=== PATIENT | female | born 1945 | race Caucasian/White ===

== ENCOUNTER 2017-03-17 06:55 | Emergency (ER) | payer MEDICARE, BC ==
[~2017-03-17] VITALS: Ht 147.3 cm; Wt 49.0 kg
[2017-03-17 07:01] VITALS: BP 142/100; PULSE 96; RESP 16; TEMP 98.5; O2SAT 99
[2017-03-17] MEDS ORDERED: ESTR.3 PO (07:14)
--- NOTE | 2017-03-17 07:29 | PD ---
HPI Chief Complaint: GI Complaint Time Seen by Provider: 07:07 Travel History International Travel<30 days: No Contact w/Intl Traveler<30days: No Traveled to known affect area: No History of Present Illness HPI patient 71-year-old female presents emergency department for evaluation of nausea without vomiting as well as diarrhea and abdominal cramps primarily in the right lower quadrant since early this morning. Patient states she's been having this on and off for a few weeks, has been [place]. She is concerned because she is traveling during the holiday season wanted to make sure it was nothing severe. Denies any fevers denies any blood in the stool nor melena. States symptoms are mild, right lower quadrant, cramping, context as above, associated signs symptoms as above. PFSH Past Surgical History Hysterectomy: Yes Social History Alcohol Use: Yes (WINE DAILY) Tobacco Use: No Substance Use: No Allergies-Medications (Allergen,Severity, Reaction): Coded Allergies: Sulfa (Sulfonamide Antibiotics) (Verified Allergy, Unknown, 03/18/17) bacitracin (Verified Allergy, Unknown, 03/18/17) lisinopril (Verified Allergy, Unknown, 03/18/17) neomycin (Verified Allergy, Unknown, 03/18/17) nickel (Verified Allergy, Unknown, 03/18/17) polymyxin B (Verified Allergy, Unknown, 03/18/17) Reported Meds & Prescriptions Reported Meds & Active Scripts Active Zofran (Ondansetron HCl) 4 Mg Tab 4 Mg PO Q6HR PRN Flagyl (Metronidazole) 500 Mg Tab 500 Mg PO BID 7 Days Cipro (Ciprofloxacin HCl) 500 Mg Tab 500 Mg PO BID 7 Days Reported Premarin (Estrogens Conjugated) 0.3 Mg Tab 0.3 Mg PO EVERY OTHER DAY Review of Systems Except as stated in HPI: all other systems reviewed are Neg Physical Exam Narrative GENERAL: Well-developed well-nourished, no obvious distress. Appears well SKIN: Focused skin assessment warm/dry. HEAD: Atraumatic. Normocephalic. EYES: Pupils equal and round. No scleral icterus. No injection or drainage. ENT: No nasal bleeding or discharge. Mucous membranes pink and moist. NECK: Trachea midline. No JVD. CARDIOVASCULAR: Regular rate and rhythm. No murmur appreciated. RESPIRATORY: No accessory muscle use. Clear to auscultation. Breath sounds equal bilaterally. GASTROINTESTINAL: Abdomen soft, non-tender, nondistended. Hepatic and splenic margins not palpable. No rebound no percussive tenderness. No CVA tenderness. MUSCULOSKELETAL: No obvious deformities. No clubbing. No cyanosis. No edema. NEUROLOGICAL: Awake and alert. No obvious cranial nerve deficits. Motor grossly within normal limits. Normal speech. PSYCHIATRIC: Appropriate mood and affect; insight and judgment normal. Data Data Last Documented VS Orders Orders Complete Blood Count With Diff (03/17/17 07:25) Comprehensive Metabolic Panel (03/17/17 07:25) Lipase (03/17/17 07:25) Urinalysis - C+S If Indicated (03/17/17 07:25) Ct Abd/Pel W Iv Contrast(Rout) (03/17/17 07:25) Iv Access Insert/Monitor (03/17/17 07:25) Ecg Monitoring (03/17/17 07:25) Oximetry (03/17/17 07:25) Ondansetron Inj (Zofran Inj) (03/17/17 07:30) Sodium Chloride 0.9% Flush (Ns Flush) (03/17/17 07:30) Sodium Chlorid 0.9% 500 Ml Inj (Ns 500 M (03/17/17 07:30) Iohexol 350 Inj (Omnipaque 350 Inj) (03/17/17 08:48) Ed Discharge Order (03/17/17 11:22) Radiology Film Requests (03/17/17 ) Labs Laboratory Tests Test 03/17/17 07:23 03/17/17 07:30 03/17/17 07:35 Blood Urea Nitrogen 18 MG/DL Creatinine 0.72 MG/DL Random Glucose 135 MG/DL Total Protein 7.3 GM/DL Albumin 3.9 GM/DL Calcium Level 8.7 MG/DL Alkaline Phosphatase 87 U/L Aspartate Amino Transf (AST/SGOT) 26 U/L Alanine Aminotransferase (ALT/SGPT) 30 U/L Total Bilirubin 0.6 MG/DL Sodium Level 139 MEQ/L Potassium Level 4.0 MEQ/L Chloride Level 107 MEQ/L Carbon Dioxide Level 26.4 MEQ/L Anion Gap 6 MEQ/L Estimat Glomerular Filtration Rate 80 ML/MIN Lipase 120 U/L Urine Color YELLOW Urine Turbidity CLEAR Urine pH 5.0 Urine Specific [place] 1.017 Urine Protein NEG mg/dL Urine Glucose (UA) NEG mg/dL Urine Ketones NEG mg/dL Urine Occult Blood NEG Urine Nitrite NEG Urine Bilirubin NEG Urine Urobilinogen LESS THAN 2.0 MG/DL Urine Leukocyte Esterase NEG Urine WBC LESS THAN 1 /hpf Urine Squamous Epithelial Cells 2 /hpf Urine Hyaline Casts 1 /lpf Microscopic Urinalysis Comment CULT NOT INDICATED White Blood Count 9.0 TH/MM3 Red Blood Count 4.42 MIL/MM3 Hemoglobin 14.1 GM/DL Hematocrit 41.2 % Mean Corpuscular Volume 93.3 FL Mean Corpuscular Hemoglobin 32.0 PG Mean Corpuscular Hemoglobin Concent 34.3 % Red Cell Distribution Width 13.0 % Platelet Count 231 TH/MM3 Mean Platelet Volume 8.2 FL Neutrophils (%) (Auto) 92.3 % Lymphocytes (%) (Auto) 3.3 % Monocytes (%) (Auto) 3.6 % Eosinophils (%) (Auto) 0.5 % Basophils (%) (Auto) 0.3 % Neutrophils # (Auto) 8.3 TH/MM3 Lymphocytes # (Auto) 0.3 TH/MM3 Monocytes # (Auto) 0.3 TH/MM3 Eosinophils # (Auto) 0.0 TH/MM3 Basophils # (Auto) 0.0 TH/MM3 CBC Comment DIFF FINAL Differential Comment MDM Medical Decision Making Medical Screen Exam Complete: Yes Emergency Medical Condition: Yes Differential Diagnosis colitis, ileitis, pancreatitis, gastritis, gastroenteritis. Narrative Course patient roomed in the emergency department, she appears well and in no obvious distress. Given her age and the location appendicitis needs exclusion and we' ll perform a CAT scan of her abdomen. Her labs are otherwise reassuring. She was offered pain medicine declined, Zofran seemed to control her symptoms. CAT scan does show several nonspecific findings: Last 24 hours Impressions Abdomen/Pelvis CT 03/17/17 0725 Signed Impressions: Service Date/Time: Friday, March 17, 2017 08:43 - CONCLUSION: 1. Nonspecific bowel gas pattern which may represent mild ileus and/or gastroenteritis. An early or partial small bowel obstruction is felt to be less likely. 2. Subtle areas of increased density within the gallbladder which could represent stones and/or sludge. There is no inflammatory change or biliary obstruction. 3. Small low-attenuation lesion in the central right lobe of the liver which is indeterminant but likely represents a small cyst or cavernous hemangioma. 4. Mild hepatic steatosis. Gregg Leon MD Discussed the findings with her and their entirety, she certainly is not obstipated at this time and has been able tolerate by mouth liquids. She does have positive bowel sounds. I think that clinically the patient is very low risk for ileus, her symptoms much more suggestive of gastroenteritis or an inflammatory bowel disease. She would like to go home currently and I think this is a reasonable thing for her but given the CT findings I have encouraged early follow-up with a primary care physician and discussed at length returned ED criteria. She was provided the disc with the CT findings should she need to follow up at an outside facility. At this time she is stable for discharge. Diagnosis Primary Impression: Colitis Med/Other Pt SpecificInfo: Prescription(s) given Scripts Ondansetron (Zofran) 4 Mg Tab 4 MG PO Q6HR Y for NAUSEA OR VOMITING, #20 TAB 0 Refills Prov: Nick Rod MD 03/17/17 Metronidazole (Flagyl) 500 Mg Tab 500 MG PO BID for Infection for 7 Days, #14 TAB 0 Refills Prov: Nick Rod MD 03/17/17 Ciprofloxacin (Cipro) 500 Mg Tab 500 MG PO BID for Infection for 7 Days, #14 TAB 0 Refills Prov: Nick Rod MD 03/17/17 Disposition: 01 DISCHARGE HOME Condition: Stable Nick Rod MD Mar 17, 2017 07:29
[2017-03-17] MEDS ORDERED: SODIUM CHLORID 0.9% 500 ML INJ 500 ML IV ONE (07:30)
[2017-03-17] MEDS ORDERED: SODIUM CHLORIDE 0.9% FLUSH 10 ML FLUSH IV FLUSH PRN (07:30)
[2017-03-17] MEDS ORDERED: ONDANSETRON HCL 4 MG/2 ML VIAL IVP ONE (07:30)
[2017-03-17 08:05] LABS: AUTOMATED NEUTROPHIL # 8.3 TH/MM3 (1.8-7.7); BASOPHIL % 0.3 % (0.0-2.0); EOSINOPHIL % 0.5 % (0.0-4.0); HEMATOCRIT 41.2 % (35.0-46.0); HEMOGLOBIN 14.1 GM/DL (11.6-15.3); LYMPH % 3.3 % (9.0-44.0); LYMPHOCYTE # 0.3 TH/MM3 (1.0-4.8); MEAN CELL VOLUME 93.3 FL (80.0-100.0); MEAN CORPUSCULAR HGB CONC 34.3 % (32.0-36.0); MEAN PLATELET VOLUME 8.2 FL (7.0-11.0); MONO % 3.6 % (0.0-8.0); MONOCYTE # 0.3 TH/MM3 (0-0.9); NEUT % 92.3 % (16.0-70.0); PLATELET COUNT 231 TH/MM3 (150-450); RED BLOOD COUNT 4.42 MIL/MM3 (4.00-5.30)
[2017-03-17 08:14] LABS: BILIRUBIN, URINE NEG (NEG); BLOOD, URINE NEG (NEG); GLUCOSE,URINE NEG (NEG); HYALINE CAST, URINE 1 /lpf (RARE); KETONE, URINE NEG (NEG); NITRITE,URINE NEG (NEG); SQUAMOUS EPITHELIAL CELL URINE 2 /hpf (0-5); URINE COLOR YELLOW (YELLW/STRAW); URINE LEUKOCYTE ESTERASE NEG (NEG)
[2017-03-17 08:14] LABS: ALBUMIN 3.9 GM/DL (3.4-5.0); ALT (GPT) 30 U/L (10-53); AST (GOT) 26 U/L (15-37); BICARBONATE 26.4 MEQ/L (21.0-32.0); BLOOD UREA NITROGEN 18 MG/DL (7-18); CALCIUM 8.7 MG/DL (8.5-10.1); CHLORIDE 107 MEQ/L (98-107); CREATININE 0.72 MG/DL (0.50-1.00); GLOMERULAR FILTRATION RATE 80 ML/MIN (>89); GLUCOSE,RANDOM 135 MG/DL (74-106); LIPASE 120 U/L (73-393); SODIUM (NA) 139 MEQ/L (136-145)
[2017-03-17 08:17] LABS: ALKALINE PHOSPHATASE 87 U/L (45-117); TOTAL BILIRUBIN ADULT 0.6 MG/DL (0.2-1.0); TOTAL PROTEIN 7.3 GM/DL (6.4-8.2)
[2017-03-17] MEDS ORDERED: IOHEXOL 350 MG/ML 10 ML VIAL (for RAD DIAG) IVCONTRAST ONE (08:48)
--- NOTE | 2017-03-17 09:11 | RADRPT ---
EXAM DATE/TIME: 03/17/2017 08:43 [facility] COMPARISON: No previous studies available for comparison. INDICATIONS : Right lower quadrant pain for 12 days, nausea, vomiting, and diarrhea today IV CONTRAST: 68 cc Omnipaque 350 (iohexol) IV ORAL CONTRAST: No oral contrast ingested. RADIATION DOSE: 4.74 CTDIvol (mGy) MEDICAL HISTORY : None SURGICAL HISTORY : Intracranial aneurysm repair. ENCOUNTER: Initial ACUITY: 2 weeks PAIN SCALE: 5/10 LOCATION: Right lower quadrant TECHNIQUE: Volumetric scanning of the abdomen and pelvis was performed. Using automated exposure control and ad justment of the mA and/or kV according to patient size, radiation dose was kept as low as reasonably achievable to obtain optimal diagnostic quality images. DICOM format image data is available electro nically for review and comparison. FINDINGS: LOWER LUNGS: The visualized lower lungs are clear. LIVER: Homogeneous density the small benign appearing 8 mm low-attenuation lesion in the central right lobe. There is no dilation of the biliary tree. There is mild hepatic steatosis. The gallbladder is normal in size and shape. There is subtle areas of increased density within the gallbladder which could rep resent sludge and/or gallstones. There is no wall thickening or pericholecystic fluid. SPLEEN: Normal size without lesion. There calcified granulomas. PANCREAS: Within normal limits. KIDNEYS: Normal in size and shape. There is no mass, stone or hydronephrosis. ADRENAL GLANDS: Within normal limits. VASCULAR: There is no aortic aneurysm. BOWEL/MESENTERY: No oral contrast was given limiting the sensitivity. The stomach is grossly unremarkable. There are m ultiple loops of fluid-filled borderline dilated proximal small bowel with several small air-fluid le vels. The colon is decompressed. There is no free air or fluid. No transition zone or mass is identif ied. ABDOMINAL WALL: Within normal limits. RETROPERITONEUM: There is no lymphadenopathy. BLADDER: No wall thickening or mass. REPRODUCTIVE: Within normal limits. INGUINAL: There is no lymphadenopathy or hernia. MUSCULOSKELETAL: Within normal limits for patient age. CONCLUSION: 1. Nonspecific bowel gas pattern which may represent mild ileus and/or gastroenteritis. An early or p artial small bowel obstruction is felt to be less likely. 2. Subtle areas of increased density within the gallbladder which could represent stones and/or sludg e. There is no inflammatory change or biliary obstruction. 3. Small low-attenuation lesion in the central right lobe of the liver which is indeterminant but lik palma represents a small cyst or cavernous hemangioma. 4. Mild hepatic steatosis. Gregg Leon MD on March 17, 2017 at 9:05 Board Certified Radiologist. This report was verified electronically.
[2017-03-17] MEDS ORDERED: CIPR-9 PO (11:22)
[2017-03-17] MEDS ORDERED: ZOFR4TAB PO (11:22)
[2017-03-17] MEDS ORDERED: METR-1 PO (11:22)
== END 2017-03-17 12:09 | disposition home or self-care (01) ==
LOC: NEPE 06:55
DX: K52.9 Noninfective gastroenteritis and colitis, unspecified (principal); K76.0 Fatty (change of) liver, not elsewhere classified
CPT/HCPCS: 74177; 80053; 81001; 83690; 85025; 96361; 96374; 99285; J2405; J7040; Q9967

== ENCOUNTER 2017-03-18 08:36 | Emergency (ER) | payer MEDICARE, BC ==
[~2017-03-18] VITALS: Ht 147.3 cm; Wt 45.0 kg
[~2017-03-18 08:36] MED LIST: CIPR-9 PO; ESTR.3 PO; METR-1 PO; ZOFR4TAB PO
[2017-03-18 08:38] VITALS: BP 175/87; PULSE 84; RESP 16; TEMP 97.7; O2SAT 99
--- NOTE | 2017-03-18 09:27 | PD ---
HPI Chief Complaint: GI Complaint Time Seen by Provider: 09:14 Travel History International Travel<30 days: No Contact w/Intl Traveler<30days: No Traveled to known affect area: No History of Present Illness HPI 71-year-old female presents with continued nonbloody diarrhea since discharge yesterday. She denies any vomiting, severe abdominal pain, fever or other concurrent complaints. She states she had a couple bad episodes this morning of watery diarrhea. She denies specific modifying factors. She states she took her medications last night. She denies specific modifying factors. She confirms recent history [place] here before coming to the emergency department. Quality is watery. Severity is couple episodes this morning. PFSH Past Medical History Medical History: Denies Significant Hx Past Surgical History Gynecologic Surgery: Yes (HYSTERECTOMY) Hysterectomy: Yes Social History Alcohol Use: Yes (WINE DAILY) Tobacco Use: No Substance Use: No Allergies-Medications (Allergen,Severity, Reaction): Coded Allergies: Sulfa (Sulfonamide Antibiotics) (Verified Allergy, Unknown, 03/18/17) bacitracin (Verified Allergy, Unknown, 03/18/17) lisinopril (Verified Allergy, Unknown, 03/18/17) neomycin (Verified Allergy, Unknown, 03/18/17) nickel (Verified Allergy, Unknown, 03/18/17) polymyxin B (Verified Allergy, Unknown, 03/18/17) Reported Meds & Prescriptions Reported Meds & Active Scripts Active Zofran (Ondansetron HCl) 4 Mg Tab 4 Mg PO Q6HR PRN Flagyl (Metronidazole) 500 Mg Tab 500 Mg PO BID 7 Days Cipro (Ciprofloxacin HCl) 500 Mg Tab 500 Mg PO BID 7 Days Reported Premarin (Estrogens Conjugated) 0.3 Mg Tab 0.3 Mg PO EVERY OTHER DAY Review of Systems Except as stated in HPI: all other systems reviewed are Neg Physical Exam Narrative GENERAL: Well-nourished, well-developed patient. SKIN: Warm and dry. HEAD: Normocephalic and atraumatic. EYES: No injection or drainage. ENT: No nasal drainage noted. NECK: Supple, trachea midline. CARDIOVASCULAR: Regular rate and rhythm RESPIRATORY: No increased effort. No accessory muscle use. GASTROINTESTINAL: Abdomen soft, non-tender, nondistended. NEUROLOGICAL: Awake and alert. Motor and sensory grossly within normal limits. Normal speech. Data Data Last Documented VS Vital Signs Date Time Temp Pulse Resp B/P (MAP) Pulse Ox O2 Delivery O2 Flow Rate FiO2 03/18/17 10:27 03/18/17 08:38 97.7 84 16 99 Orders Orders Basic Metabolic Panel (Bmp) (03/18/17 09:19) Sodium Chlorid 0.9% 500 Ml Inj (Ns 500 M (03/18/17 09:30) Potassium Chloride Eff (K-Lyte Cl Eff) (03/18/17 10:15) Labs Laboratory Tests Test 03/18/17 09:25 Blood Urea Nitrogen 9 MG/DL Creatinine 0.81 MG/DL Random Glucose 118 MG/DL Calcium Level 8.7 MG/DL Sodium Level 138 MEQ/L Potassium Level 3.1 MEQ/L Chloride Level 104 MEQ/L Carbon Dioxide Level 24.6 MEQ/L Anion Gap 9 MEQ/L Estimat Glomerular Filtration Rate 70 ML/MIN MDM Medical Decision Making Medical Screen Exam Complete: Yes Emergency Medical Condition: Yes Medical Record Reviewed: Yes (past history confirmed) Interpretation(s) CBC & BMP Diagram 03/18/17 09:25 Calcium Level 8.7 Differential Diagnosis Colitis, gastroenteritis, electrolyte abnormality Narrative Course Staff has already placed IV, will check basic electrolytes and give small 500 cc normal saline bolus and to reassess. Patient without diarrhea here, patient given hypokalemia replacement. Patient agrees to further testing as an outpatient and to continue current medications at home. Given return instructions. Advised setting up a primary for follow- up while down here Diagnosis Primary Impression: Diarrhea Qualified Codes: R19.7 - Diarrhea, unspecified Patient Instructions: General Instructions Additional Instructions: Continue medications, return as needed, set up a primary and GI specialist for follow-up Med/Other Pt SpecificInfo: No Change to Meds Disposition: 01 DISCHARGE HOME Condition: Stable Vicky Chamberlain MD Mar 18, 2017 09:27
[2017-03-18] MEDS ORDERED: SODIUM CHLORID 0.9% 500 ML INJ 500 ML IV ONE (09:30)
[2017-03-18 10:07] LABS: BICARBONATE 24.6 MEQ/L (21.0-32.0); CALCIUM 8.7 MG/DL (8.5-10.1); CREATININE 0.81 MG/DL (0.50-1.00)
[2017-03-18] MEDS ORDERED: POTASSIUM CHLORIDE 25 MEQ EFFERVESCENT TAB PO ONE (10:15)
== END 2017-03-18 11:39 | disposition home or self-care (01) ==
LOC: NEPE 08:36
DX: R19.7 Diarrhea, unspecified (principal)
CPT/HCPCS: 80048; 99283; J7040